=== PATIENT | male | born 1950 ===

== ENCOUNTER 2023-10-07 05:40 | Day surgery (SDC) | payer OTHER ==
[~2023-10-07] VITALS: Ht 172.7 cm; Wt 108.9 kg
[~2023-10-07 05:40] MED LIST: CLONAZEPAM2 M1 PO; COZAAR25 MG PO; FINASTERIDE5 MG PO; ISOSORBIDE DINI30 MG PO; LIPITOR40 MG PO; LIPOFEN150 MG PO; PEPCID AC20 MG PO; SEROQUEL300 MG PO; SERTRALINE HCL100 MG PO; SYNTHROID137 MCG PO; TRAZODONE HCL150 MG PO
[2023-10-07] MEDS ORDERED: CEFAZOLIN SODIUM 1,000 MG VIAL ONE ×2 (07:24→07:32)
[2023-10-07] MEDS ORDERED: BUPIVACAINE HCL/MPF 0.5% 30ML VIAL ONE (07:24)
[2023-10-07] MEDS ORDERED: ISOPROPYL ALCOHOL 30 ML OUNCE TOP ONE (08:45)
== END 2023-10-07 10:50 | disposition home or self-care (01) ==
LOC: CIR.AMB 05:40
PROVIDERS: ATTEND Orthopaedic Surgery Hand Surgery
DX: M65.352 Trigger finger, left little finger (principal); M65.342 Trigger finger, left ring finger; M65.332 Trigger finger, left middle finger; Z88.5 Allergy status to narcotic agent; Z91.09 Other allergy status, other than to drugs and biological substances; E11.9 Type 2 diabetes mellitus without complications